=== PATIENT | male | born 1975 | race American Indian/Alaskan Native ===

== ENCOUNTER 2018-12-02 20:40 | Emergency (ER) | payer SELFPAY ==
[2018-12-02 20:49] VITALS: BP 126/84
--- NOTE | 2018-12-02 20:50 | Event Note ---
ED Screening Note Date of service: 12/02/18 Time: 20:48 ED Screening Note: This is a 43 y.o. M. that presents to the ER with penile discharge and dysuria since last night. This initial assessment/diagnostic orders/clinical plan/treatment(s) is/are subject to change based on patients health status, clinical progression and re- assessment by fellow clinical providers in the ED. Further treatment and workup at subsequent clinical providers discretion. Patient/guardian urged not to elope from the ED as their condition may be serious if not clinically assessed and managed. Initial orders include: Labs
[2018-12-02 21:22] LABS: Bilirubin,Urine NEG (Negative); Blood,Urine SM (Negative); Color,Urine Yellow (Yellow); Mucus,Urine FEW /HPF; Protein,Urine <15 mg/dL mg/dL (Negative); Urobilinogen,Urine < 2.0 mg/dL (<2.0)
[2018-12-02 21:23] LABS: WBC,Urine > 182.0 /HPF (0.0-6.0)
--- NOTE | 2018-12-02 22:32 | Emergency Department Report ---
ED Dysuria HPI - HPI Chief Complaint: Urogenital-Male Stated Complaint: INFECTION PENIS Time Seen by Provider: 12/02/18 20:48 Duration: 1 Day Location of Discomfort: Urethra (dysuria) Severity: Mild Symptoms: Dysuria: No, Frequency: No, Suprapubic Pain: No, Flank Pain: No, Fever: No, Hematuria: No, Abdominal Pain: No, Previous UTI's: No Other History: 43 YO HERE WITH PENILE DC CONCERNED FOR STI. NO FEVER. NON TOXIC. NO TESTICULAR PAIN ED Review of Systems ROS: Stated complaint: INFECTION PENIS Other details as noted in HPI Comment: All other systems reviewed and negative ED Past Medical Hx - Past Medical History Previous Medical History?: Yes Hx Asthma: Yes - Surgical History Past Surgical History?: No - Family History Family history: no significant - Social History Smoking Status: Current Every Day Smoker Substance Use Type: Alcohol - Medications Home Medications: Home Medications Medication Instructions Recorded Confirmed Last Taken Type Ibuprofen [Motrin 800 MG tab] 800 mg PO TID PRN #30 tablet 02/09/13 Unknown Rx Dysuria Exam - Exam General: Vital signs noted. No distress. Alert and acting appropriately. Exam: Yes Moist Mucous Membranes, No CVA Tenderness, No Abdominal Tenderness, No Rigidity or Guarding Labs: Lab Results 12/02/18 Range/Units 21:05 Urine Color Yellow (Yellow) Urine Turbidity Slightly-cloudy (Clear) Urine pH 7.0 (5.0-7.0) Ur Specific [place] 1.024 (1.003-1.030) Urine Protein <15 mg/dl (Negative) mg/dL Urine Glucose (UA) Neg (Negative) mg/dL Urine Ketones Neg (Negative) mg/dL Urine Blood Sm (Negative) Urine Nitrite Neg (Negative) Urine Bilirubin Neg (Negative) Urine Urobilinogen < 2.0 (<2.0) mg/dL Ur Leukocyte Esterase Mod (Negative) Urine WBC (Auto) > 182.0 H (0.0-6.0) /HPF Urine RBC (Auto) 11.0 (0.0-6.0) /HPF U Epithel Cells (Auto) < 1.0 (0-13.0) /HPF Urine Mucus Few /HPF ED Course Vital Signs 12/02/18 20:47 Temperature 97.6 F Pulse Rate 73 Respiratory 18 Rate Blood Pressure 126/84 O2 Sat by Pulse 99 Oximetry ED Medical Decision Making - Medical Decision Making Labs 12/02/18 21:05 Urine Color Yellow Urine Turbidity Slightly-cloudy Urine pH 7.0 Ur Specific [place] 1.024 Urine Protein <15 mg/dl Urine Glucose (UA) Neg Urine Ketones Neg Urine Blood Sm Urine Nitrite Neg Urine Bilirubin Neg Urine Urobilinogen < 2.0 Ur Leukocyte Esterase Mod Urine WBC (Auto) > 182.0 H Urine RBC (Auto) 11.0 U Epithel Cells (Auto) < 1.0 Urine Mucus Few Vital Signs 12/02/18 20:47 Temperature 97.6 F Pulse Rate 73 Respiratory 18 Rate Blood Pressure 126/84 O2 Sat by Pulse 99 Oximetry UA NOTED NO TESTICULAR PAIN GC SENT EMPIRIC TX WITH ROCEPHIN AND AZITHRO. DC HOME WITH PCP FOLLOW UP Critical care attestation.: If time is entered above; I have spent that time in minutes in the direct care of this critically ill patient, excluding procedure time. ED Disposition Clinical Impression: Concern about STD in male without diagnosis Disposition: DC-01 TO HOME OR SELFCARE Is pt being admited?: No Does the pt Need Aspirin: No Condition: Stable Instructions: Safe Sex (ED) Referrals: JAZMINE SAMANIEGO MD [Staff Physician] - 3-5 Days Time of Disposition: 22:35
[2018-12-02] MEDS ORDERED: ZITHROMAX PO ONE (22:33)
[2018-12-02] MEDS ORDERED: XYLOCAINE 1% MPF 5 mL INFILTRATI ONE (22:33)
[2018-12-02] MEDS ORDERED: ROCEPHIN IM ONE (22:33)
== END 2018-12-02 23:10 | disposition home or self-care (01) ==
LOC: ED 20:40
DX: R36.9 Urethral discharge, unspecified (principal); J45.909 Unspecified asthma, uncomplicated; F17.200 Nicotine dependence, unspecified, uncomplicated; Z79.899 Other long term (current) drug therapy
CPT/HCPCS: 81001; 96372; 99283; J0696

== ENCOUNTER 2019-11-11 19:51 | Emergency (ER) | payer SELFPAY ==
--- NOTE | 2019-11-11 20:26 | Event Note ---
ED Screening Note ED Screening Note: asthma cough sob no fever rx none This initial assessment/diagnostic orders/clinical plan/treatment(s) is/are subject to change based on patients health status, clinical progression and re- assessment by fellow clinical providers in the ED. Further treatment and workup at subsequent clinical providers discretion. Patient/guardian urged not to elope from the ED as their condition may be serious if not clinically assessed and managed. Initial orders include: xray
[2019-11-11 20:30] VITALS: BP 133/89
--- NOTE | 2019-11-11 20:55 | XRay Report ---
CHEST 2 VIEWS INDICATION / CLINICAL INFORMATION: Cough with asthma. COMPARISON: None available. FINDINGS: SUPPORT DEVICES: None. HEART / MEDIASTINUM: The heart size and pulmonary vasculature are normal. LUNGS / PLEURA: No significant pulmonary or pleural abnormality. No pneumothorax. ADDITIONAL FINDINGS: No significant additional findings. IMPRESSION: No acute findings. Signer Name: Jules Saavedra MD Signed: 11/11/2019 8:50 PM Workstation Name: [id number]
== END 2019-11-12 01:45 | disposition left against medical advice (07) ==
LOC: ED 19:51
DX: R05 Cough (principal); J00 Acute nasopharyngitis [common cold]; Z53.21 Procedure and treatment not carried out due to patient leaving prior to being seen by health care provider
CPT/HCPCS: 71046